=== PATIENT | male | born 1990 | race Two or more races ===

== ENCOUNTER 2019-01-17 14:57 | Emergency (ER) | payer MEDICAID, OTHER ==
[~2019-01-17] VITALS: Ht 170.2 cm; Wt 79.4 kg
[2019-01-17 16:40] VITALS: BP 141/85
[2019-01-17] MEDS ORDERED: LEVETIRACETAM 500 MG TAB PO ONE (17:00)
== END 2019-01-17 17:22 | disposition home or self-care (01) ==
LOC: ER 15:00
DX: G40.909 Epilepsy, unspecified, not intractable, without status epilepticus (principal); F17.210 Nicotine dependence, cigarettes, uncomplicated; F12.90 Cannabis use, unspecified, uncomplicated; F15.90 Other stimulant use, unspecified, uncomplicated; Z76.0 Encounter for issue of repeat prescription